=== PATIENT | female | born 2000 | race Caucasian/White ===

== ENCOUNTER 2022-12-11 21:50 | Emergency (ER) | payer BC ==
[~2022-12-11] VITALS: Ht 168 cm; Wt 113.4 kg
[2022-12-11 22:51] LABS: HEMATOCRIT 40 % (35-52); HEMOGLOBIN 13.1 g/dL (11.5-16.0); MEAN CORPUSCULAR HEMOGLOBIN 27 pg (25-34); MEAN CORPUSCULAR HGB CONC 33 g/dL (32-36); MEAN CORPUSCULAR VOLUME 84 fL (80-99); PLATELET COUNT 227 10^3/uL (130-400); WHITE BLOOD COUNT 10.2 10^3/uL (4.3-11.0)
[2022-12-11 23:02] LABS: PROTHROMBIN TIME PATIENT 13.2 SEC (12.2-14.7)
--- NOTE | 2022-12-11 23:23 | ED GU-Female ---
General Chief Complaint: - Reproductive Stated Complaint: MENSTRUAL ISSUES Nursing Triage Note: pt ambulatory to room with pt . states she has been having heavy vaginal bleeding and cramping for almost 3 weeks. states she saw her doctor and was given provera. states she took provera for approx 10 days. states this helped temporarily, but bleeding and cramping came back after stopping the medication. pt states she was advised by her doctor to come to ER if condition worsened. pt states she passed two large clots today larger than the size of her palm. Source: patient History of Present Illness Date Seen by Provider: Dec 11, 2022 Time Seen by Provider: 22:15 Initial Comments PT ARRIVES VIA POV FROM HOME PT STATES SHE HAS INFREQUENT AND IRREGULAR PERIODS SHE HAD A PERIOD IN SEPTEMBER FOR A FEW DAYS. SHE THEN STARTED BLEEDING ON NOVEMBER 19, AND SHE SAW VICTORIANO ABRAMS AT [facility] ON 11/22/22 FOR THE BLEEDING. HAS ALSO BEEN HAVING CRAMPING. SHE WENT BACK TO SEE HER 11/29/22 FOR CONTINUED BLEEDING AND WAS GIVEN PROVERA X 7 DAYS. THE BLEEDING SLOWED DOWN BUT WAS STILL HAVING CRAMPING. SHE WENT BACK AGAIN THIS PAST WEEK, AND HAS AN ULTRASOUND SCHEDULED FOR NEXT WEEK AND A FOLLOW UP APPOINTMENT. SHE HAS NOT USED ANY PADS, ONLY USES TAMPONS. SHE HAS USED 7 TAMPONS TODAY AND TODAY SHE PASSED 2 LARGE CLOTS. SO SHE CAME HERE SHE HAS NOT TAKEN ANYTHING FOR PAIN/CRAMPING. NO DIZZINESS OR SYNCOPE NO NAUSEA/VOMITING PT DENIES ANY OTHER MEDICAL PROBLEMS SHE DOES NOT TAKE ANY DAILY MEDICATIONS. PCP: [facility] VICTORIANO ABRAMS Allergies and Home Medications Patient Home Medication List Home Medication List Reviewed: Yes Norgestimate-Ethinyl Estradiol (Ortho Tri-Cyclen 28 Tablet) [id number] 28 Tablet, 4 EACH PO DAILY Prescribed by: ESVIN VELAZQUEZ on 12/11/221 Ondansetron (Ondansetron Odt) 8 Mg Tab.rapdis, 8 MG PO Q6H Prescribed by: ESVIN VELAZQUEZ on 12/11/221 Review of Systems Review of Systems Constitutional: no symptoms reported Respiratory: no symptoms reported Cardiovascular: no symptoms reported Gastrointestinal: see HPI Genitourinary: see HPI : No LMP: Nov 19, 2022 Musculoskeletal: no symptoms reported Skin: no symptoms reported Psychiatric/Neurological: No Symptoms Reported Endocrine: No Symptoms Reported Hematologic/Lymphatic: No Symptoms Reported Past Fxhriqh-Vnalrr-Jfgoat Hx Patient Social History Tobacco Use?: No Use of E-Cig and/or Vaping dev: No Substance use?: No Alcohol Use?: Yes Alcohol Frequency: Several times a month Immunizations Up To Date Influenza Vaccine Up-to-Date: Yes; Up-to-Date Past Medical History Surgeries: No Respiratory: No Cardiac: No Neurological: No Reproductive Disorders: Yes (IRREGULAR AND INFREQUENT PERIODS) Female Reproductive Disorders: Menstrual Problems Genitourinary: Yes Kidney Stones Gastrointestinal: No Musculoskeletal: No Endocrine: No HEENT: No Cancer: No Psychosocial: No Integumentary: No Blood Disorders: No Physical Exam Vital Signs Vital Signs - First Documented 12/11/22 22:00 Temp 36.8 Pulse 95 Resp 23 B/P (MAP) 143/88 (106) Pulse Ox 98 Capillary Refill : Height, Weight, BMI Height: '" Weight: lbs. oz. kg; 40.00 BMI Method: General Appearance: WD/WN, no apparent distress Neck: normal inspection Cardiovascular: regular rate, rhythm Respiratory: normal breath sounds Gastrointestinal: normal bowel sounds, soft; No distended, No guarding, No rebound; tenderness (MILD SUPRAPUBIC TENDERNESS) Back: no CVA tenderness Extremities: normal inspection, normal capillary refill Neurologic/Psychiatric: no motor/sensory deficits, alert, normal mood/affect, oriented x 3 Skin: normal color, warm/dry, tattoos/piercings (TATTOOS) Progress/Results/Core Measures Suspected Sepsis SIRS Temperature: Pulse: 95 Respiratory Rate: 23 Laboratory Tests 12/11/22 22:46: White Blood Count 10.2 Blood Pressure 143 /88 Mean: 106 Laboratory Tests 12/11/22 22:46: INR Comment 1.0, Platelet Count 227 Results/Orders Lab Results Laboratory Tests Test 12/11/22 22:46 12/11/22 23:15 Range/Units White Blood Count 10.2 4.3-11.0 10^3/uL Red Blood Count 4.79 3.80-5.11 10^6/uL Hemoglobin 13.1 11.5-16.0 g/dL Hematocrit 40 35-52 % Mean Corpuscular Volume 84 80-99 fL Mean Corpuscular Hemoglobin 27 25-34 pg Mean Corpuscular Hemoglobin Concent 33 32-36 g/dL Red Cell Distribution Width 14.0 10.0-14.5 % Platelet Count 227 130-400 10^3/uL Mean Platelet Volume 11.0 9.0-12.2 fL Prothrombin Time 13.2 12.2-14.7 SEC INR Comment 1.0 0.8-1.4 Activated Partial Thromboplast Time 33 24-35 SEC Human Chorionic Gonadotropin, Quant < 5 <5 MIU/ML My Orders Orders - ESVIN VELAZQUEZ DO Urine Bedside (12/11/22 22:08) Cbc No Diff (12/11/22 22:31) Hcg,Quantitative (12/11/22 22:31) Protime With Inr (12/11/22 22:31) Partial Thromboplastin Time (12/11/22 22:31) Vital Signs/I&O 12/11/22 12/12/22 22:00 00:02 Temp 36.8 Pulse 95 92 Resp 23 B/P (MAP) 143/88 (106) 149/91 Pulse Ox 98 98 Capillary Refill : Blood Pressure Mean: 106 Progress Note : Progress Note BEDSIDE TEST IS NEGATIVE AND QUANT BHCG IS UNDETECTABLE CBC IS NORMAL PT DID NOT SATURATE ANY TAMPONS OR PASS ANY CLOTS DURING ER STAY DISCUSSED TEST RESULTS, ANTICIPATED COURSE, SYMPTOMATIC TREATMENT, MEDICATIONS, NEED FOR FOLLOW UP AND RETURN PRECAUTIONS Departure Impression Primary Impression: Menometrorrhagia Disposition: 01 HOME, SELF-CARE Condition: Stable Departure-Patient Inst. Decision time for Depature: 23:15 Referrals: ALYCIA ABRAMS APRN (PCP) Primary Care Physician Patient Instructions: Heavy Periods ED, Absent or irregular periods Add. Discharge Instructions: KEEP AN ACCURATE PAD COUNT DRINK LOTS OF CLEAR LIQUIDS TYLENOL 1 GRAM PLUS MOTRIN 800 MG 4 TIMES A DAY FOR PAIN FOLLOW UP WITH [facility] NEXT WEEK FOR FURTHER CARE All discharge instructions reviewed with patient and/or family. Voiced understanding. Scripts Ondansetron (Ondansetron Odt) 8 Mg Tab.rapdis 8 MG PO Q6H, #12 TAB Prov: ESVIN VELAZQUEZ DO 12/11/22 Norgestimate-Ethinyl Estradiol (Ortho Tri-Cyclen 28 Tablet) [id number] 28 Tablet 4 EACH PO DAILY for 5 Days, #1 PACKET Prov: ESVIN VELAZQUEZ DO 12/11/22 ESVIN VELAZQUEZ DO Dec 11, 2022 23:23
[2022-12-11] MEDS ORDERED: ONDA8TAB13 PO (23:31)
[2022-12-11] MEDS ORDERED: NORG1TAB87 PO (23:31)
[2022-12-12 00:02] VITALS: BP 149/91
== END 2022-12-12 00:02 | disposition home or self-care (01) ==
LOC: ER 21:56
DX: N92.1 Excessive and frequent menstruation with irregular cycle (principal)
CPT/HCPCS: 36415; 84702; 84703; 85027; 85610; 85730

== ENCOUNTER 2022-12-20 11:10 | Emergency (ER) | payer BC ==
[~2022-12-20] VITALS: Ht 167.7 cm; Wt 113.4 kg
[~2022-12-20 11:10] MED LIST: NORG1TAB87 PO; ONDA8TAB13 PO
--- NOTE | 2022-12-20 11:46 | ED GU-Female ---
General Chief Complaint: - Reproductive Stated Complaint: VAGINAL BLEEDING | LIGHTHEADED Source: patient Exam Limitations: no limitations (DELFIN WERNER) History of Present Illness Date Seen by Provider: Dec 20, 2022 Time Seen by Provider: 11:42 Initial Comments Patient is a 22-year-old female with no known medical problems who presents the ED for weakness since yesterday with tingling lower abdominal cramping and vaginal bleeding. She states she was seen here late November for similar symptoms. Symptoms of vaginal bleeding started November 19. She has seen her primary care physician multiple visits. She states last Tuesday she saw her primary care physician and was placed on drospirenone estradiol last Tuesday. She states she feels like the bleeding has improved. She does get episodes where she bleeds every hour. She reports getting a Pap smear in the past and states is unremarkable. History of ovarian cancer. She states she had ultrasound last week which did not note any acute abnormality but was not able to visualize the ovaries. She denies chest pain, shortness of breath, fever, chills, nausea, vomiting, diarrhea. She did have some shortness of breath yesterday with weakness but that is better right now. Little bit of shortness of breath today with episode of weakness. Denies headache, visual changes, unilateral muscle weakness. Weakness is more diffuse. She denies vaginal discharge, dysuria, hematuria, increased urine frequency, flank pain (DELFIN WERNER) Allergies and Home Medications Patient Home Medication List Home Medication List Reviewed: Yes (DELFIN WERNER) Cephalexin (Cephalexin) 500 Mg Tablet, 500 MG PO BID Prescribed by: PRABHU GAN on 12/20/22 1228 Norgestimate-Ethinyl Estradiol (Ortho Tri-Cyclen 28 Tablet) [id number] 28 Tablet, 4 EACH PO DAILY Prescribed by: ESVIN VELAZQUEZ on 12/11/22 2331 Ondansetron (Ondansetron Odt) 8 Mg Tab.rapdis, 8 MG PO Q6H Prescribed by: ESVIN VELAZQUEZ on 12/11/22 2331 Review of Systems Review of Systems Constitutional: No chills, No diaphoresis, No dizziness, No fever; malaise, weakness EENTM: No hearing loss, No blurred vision Respiratory: No cough Cardiovascular: No chest pain Gastrointestinal: No abdominal pain, No diarrhea, No nausea, No vomiting Genitourinary: denies burning, denies dysuria, denies frequency Musculoskeletal: No back pain, No joint pain Skin: No change in color, No change in hair/nails (DELFIN WERNER) All Other Systemes Reviewed Negative Unless Noted: Yes (DELFIN WERNER) Past Oldznfz-Qhagry-Rggaov Hx Past Medical History Surgeries: No Respiratory: No Cardiac: No Neurological: No Reproductive Disorders: Yes (IRREGULAR AND INFREQUENT PERIODS) Female Reproductive Disorders: Menstrual Problems Genitourinary: Yes Kidney Stones Gastrointestinal: No Musculoskeletal: No Endocrine: No HEENT: No Cancer: No Psychosocial: No Integumentary: No Blood Disorders: No (DELFIN WERNER) Physical Exam Vital Signs Vital Signs - First Documented 12/20/22 11:25 Temp 37.0 Pulse 90 Resp 18 B/P (MAP) 136/91 (106) Pulse Ox 98 O2 Delivery Room Air (IVONNE PANIAGUA MD) Vital Signs Capillary Refill : (DELFIN WERNER) Height, Weight, BMI Height: '" Weight: lbs. oz. 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, no motor/sensory deficits, alert, normal mood/affect Skin: normal color, warm/dry (DELFIN WERNER) Progress/Results/Core Measures Suspected Sepsis SIRS Temperature: Pulse: Respiratory Rate: Laboratory Tests 12/20/22 11:48: White Blood Count 10.6 Blood Pressure / Mean: Laboratory Tests 12/20/22 11:48: INR Comment 1.0, Platelet Count 244 (DELFIN WERNER) Results/Orders Lab Results Laboratory Tests Test 12/20/22 11:32 12/20/22 11:48 Range/Units Urine Color YELLOW Urine Clarity SL CLOUDY Urine pH 6.0 5-9 Urine Specific [place] 1.025 H 1.016-1.022 Urine Protein TRACE H NEGATIVE Urine Glucose (UA) NEGATIVE NEGATIVE Urine Ketones NEGATIVE NEGATIVE Urine Nitrite NEGATIVE NEGATIVE Urine Bilirubin NEGATIVE NEGATIVE Urine Urobilinogen NORMAL < = 1.0 MG/DL Urine Leukocyte Esterase 2+ H NEGATIVE Urine RBC (Auto) 2+ H NEGATIVE Urine RBC 0-2 /HPF Urine WBC 50-100 H /HPF Urine Squamous Epithelial Cells 5-10 /HPF Urine Crystals NONE /LPF Urine Bacteria MODERATE H /HPF Urine Casts NONE /LPF Urine Mucus NEGATIVE /LPF Urine Culture Indicated YES Urine Test NEGATIVE NEGATIVE White Blood Count 10.6 4.3-11.0 10^3/uL Red Blood Count 4.13 3.80-5.11 10^6/uL Hemoglobin 11.1 L 11.5-16.0 g/dL Hematocrit 35 35-52 % Mean Corpuscular Volume 85 80-99 fL Mean Corpuscular Hemoglobin 27 25-34 pg Mean Corpuscular Hemoglobin Concent 32 32-36 g/dL Red Cell Distribution Width 13.8 10.0-14.5 % Platelet Count 244 130-400 10^3/uL Mean Platelet Volume 10.6 9.0-12.2 fL Immature Granulocyte % (Auto) 1 % Neutrophils (%) (Auto) 69 42-75 % Lymphocytes (%) (Auto) 22 12-44 % Monocytes (%) (Auto) 5 0-12 % Eosinophils (%) (Auto) 3 0-10 % Basophils (%) (Auto) 1 0-10 % Neutrophils # (Auto) 7.3 1.8-7.8 10^3/uL Lymphocytes # (Auto) 2.4 1.0-4.0 10^3/uL Monocytes # (Auto) 0.5 0.0-1.0 10^3/uL Eosinophils # (Auto) 0.3 0.0-0.3 10^3/uL Basophils # (Auto) 0.1 0.0-0.1 10^3/uL Immature Granulocyte # (Auto) 0.1 0.0-0.1 10^3/uL Prothrombin Time 13.2 12.2-14.7 SEC INR Comment 1.0 0.8-1.4 Activated Partial Thromboplast Time 31 24-35 SEC Human Chorionic Gonadotropin, Quant < 5 <5 MIU/ML (IVONNE PANIAGUA MD) Vital Signs/I&O 12/20/22 12/20/22 11:25 12:41 Temp 37.0 Pulse 90 85 Resp 18 16 B/P (MAP) 136/91 (106) 135/79 Pulse Ox 98 98 O2 Delivery Room Air Room Air (IVONNE PANIAGUA MD) Vital Signs/I&O Capillary Refill : (DELFIN WERNER) Departure Communication (PCP) Patient is a 22-year-old female who presents the ED for generalized weakness, diffuse body tingling vaginal bleeding. Vaginal bleeding since November 19. Was seen here a week and a half ago for similar symptoms. She saw her primary care physician last week started on control. She states the bleeding seems to be improving some. Denies of any specific urinary symptoms. Lower abdominal cramping. No chest pain or shortness of breath currently. She had some shortness of breath with the episode of weakness and tingling this morning and last night. On arrival vital signs stable. She does not appear pale. No known blood disorders. She states she has had a normal Pap smear performed in the past. She is not currently following up with an band reamer machine operator. She had a ultrasound performed last week which she states was otherwise unremarkable but was not able to visualize her ovaries. No known history of PCOS, or history of abnormal menstrual cycle. Due to current complaint CBC, coags, urinalysis with test. Negative for . Urinalysis concerning for UTI. She is not concern for sexual transmitted faction. No vaginal discharge. CBC grossly unremarkable. Hemoglobin 11.1. Last lab work hemoglobin a week and a half ago which showed 13.1. Slight decrease. She does not require a blood transfusion. She does not appear toxic or septic. Does not appear to have a surgical abdomen. Recommend anti-inflammatories. Will discharge with Keflex. I strongly recommend following up with an band reamer machine operator which was provided in discharge instructions. Further evaluation by a specialist would likely be beneficial. Continue with your control. If any worsening symptoms such as fever, weakness, vomiting, skin color changes to return back to ED. Follow- up with PCP in 2 days for reevaluation. Recheck a urinalysis in 7 days (DELFIN WERNER) Impression Primary Impression: Urinary tract infection Disposition: 01 HOME, SELF-CARE Condition: Stable Departure-Patient Inst. Decision time for Depature: 12:28 (DELFIN WERNER) Referrals: RAGHAVENDRA ADHIKARI TRISTA D APRN (PCP) Primary Care Physician GWENDOLYN CRUZ DO Patient Instructions: Urinary Tract Infection, Adult (DC) Add. Discharge Instructions: Take antibiotics as prescribed. Provided [facility] [employer] follow-up. Recommend contacting them to schedule appointment. Continue with your control. If any worsening symptoms return back to ED All discharge instructions reviewed with patient and/or family. Voiced understanding. Scripts Cephalexin (Cephalexin) 500 Mg Tablet 500 MG PO BID for 7 Days, #14 TAB Prov: DELFIN WERNER 12/20/22 ATTENDING PHYSICIAN NOTE: I was physically present as attending physician in the emergency department during the care of this patient, but I was not directly involved in the decision making or delivery of care for this patient. (IVONNE PANIAGUA MD) DELFIN WERNER Dec 20, 2022 11:46 IVONNE PANIAGUA MD Dec 20, 2022 21:42
[2022-12-20 11:58] LABS: BASOPHILS # (AUTO) 0.1 10^3/uL (0.0-0.1); BASOPHILS % (AUTO) 1 % (0-10); EOSINOPHILS # (AUTO) 0.3 10^3/uL (0.0-0.3); EOSINOPHILS % (AUTO) 3 % (0-10); HEMATOCRIT 35 % (35-52); HEMOGLOBIN 11.1 g/dL (11.5-16.0); LYMPHOCYTES # (AUTO) 2.4 10^3/uL (1.0-4.0); LYMPHOCYTES % (AUTO) 22 % (12-44); MEAN CORPUSCULAR HEMOGLOBIN 27 pg (25-34); MEAN CORPUSCULAR HGB CONC 32 g/dL (32-36); MEAN CORPUSCULAR VOLUME 85 fL (80-99); MEAN PLATELET VOLUME 10.6 fL (9.0-12.2); MONOCYTES # (AUTO) 0.5 10^3/uL (0.0-1.0); MONOCYTES % (AUTO) 5 % (0-12); NEUTROPHILS # (AUTO) 7.3 10^3/uL (1.8-7.8); NEUTROPHILS % (AUTO) 69 % (42-75); PLATELET COUNT 244 10^3/uL (130-400); WHITE BLOOD COUNT 10.6 10^3/uL (4.3-11.0)
[2022-12-20 12:00] LABS: CLARITY,URINE SL CLOUDY; COLOR,URINE YELLOW; GLUCOSE, URINE (UA) NEGATIVE (NEGATIVE); KETONES,URINE NEGATIVE (NEGATIVE); NITRITE,URINE NEGATIVE (NEGATIVE); PROTEIN,URINE TRACE (NEGATIVE)
[2022-12-20 12:01] LABS: BACTERIA,URINE MODERATE /HPF; BILIRUBIN,URINE NEGATIVE (NEGATIVE); LEUKOCYTE ESTERASE ,URINE 2+ (NEGATIVE); RBC,URINE 0-2 /HPF; WBC,URINE 50-100 /HPF
[2022-12-20 12:08] LABS: PROTHROMBIN TIME PATIENT 13.2 SEC (12.2-14.7)
[2022-12-20] MEDS ORDERED: CEPH500T PO (12:28)
[2022-12-20 12:41] VITALS: BP 135/79
== END 2022-12-20 12:41 | disposition home or self-care (01) ==
LOC: EDUNIT# 11:10 → ER 11:12
DX: N39.0 Urinary tract infection, site not specified (principal); Z87.442 Personal history of urinary calculi
CPT/HCPCS: 36415; 81000; 84702; 84703; 85025; 85610; 85730; 87077; 87088; 87186